=== PATIENT | male | born 1975 | race Two or more races ===

== ENCOUNTER 2021-10-31 11:44 | Emergency (ER) | payer OTHER ==
[~2021-10-31] VITALS: Ht 180.3 cm; Wt 88.9 kg
== END 2021-10-31 17:32 | disposition home or self-care (01) ==
LOC: ER 11:44
DX: A05.9 Bacterial foodborne intoxication, unspecified (principal)

== ENCOUNTER 2022-06-03 10:41 | Emergency (ER) | payer OTHER ==
[~2022-06-03] VITALS: Ht 180.3 cm; Wt 91.6 kg
[2022-06-03] MEDS ORDERED: FLONASE ALLERG9.9 ML NASAL (14:11)
[2022-06-03] MEDS ORDERED: ZITHROMAX500 MG PO (14:11)
[2022-06-03] MEDS ORDERED: MUCINEX DM ER1 EAC1 PO (14:11)
== END 2022-06-03 14:33 | disposition home or self-care (01) ==
LOC: ER 10:41
DX: J06.9 Acute upper respiratory infection, unspecified (principal); Z20.822 Contact with and (suspected) exposure to COVID-19

== ENCOUNTER → 2022-12-13 | Emergency (ER) | payer OTHER ==
[~2022-12-13] VITALS: Ht 180.3 cm; Wt 87.5 kg
[~2022-12-13] MED LIST: FLONASE ALLERG9.9 ML NASAL; MUCINEX DM ER1 EAC1 PO; ZITHROMAX500 MG PO
== END | disposition home or self-care (01) ==
LOC: ER 14:43
DX: R10.32 Left lower quadrant pain (principal)

== ENCOUNTER 2024-06-15 10:51 | Emergency (ER) | payer OTHER ==
[~2024-06-15] VITALS: Ht 180.3 cm; Wt 90.7 kg
== END 2024-06-15 12:41 | disposition home or self-care (01) ==
LOC: ER 10:53
DX: J00 Acute nasopharyngitis [common cold] (principal); K57.30 Diverticulosis of large intestine without perforation or abscess without bleeding

== ENCOUNTER 2024-06-30 09:03 | Outpatient (CLI) | payer OTHER | END 2024-06-30 09:17 | disposition home or self-care (01) | LOC: TOM 09:03 | PROVIDERS: ATTEND Internal Medicine Gastroenterology | DX: R10.33 Periumbilical pain (principal) ==